=== PATIENT | female | born 1980 | race Caucasian/White ===

== ENCOUNTER 2018-04-23 13:39 | Inpatient (IN) | payer SELFPAY ==
[~2018-04-23] VITALS: Ht 170.2 cm; Wt 56.7 kg
--- NOTE | 2018-04-23 14:05 | NUR ---
PT CAME FROM HOME S/P SLIP AND FALL- C/O SEVERE R KNEE PAIN. DENIES KO, DENIES ANY PAIN. VSS. SEEN BY FOR EVAL. IV ACCESS STARTED. BLOOD DRAWN FOR LABS. SAFETY AND COMFORT MEASURES PROVIDED. WILL MONITOR.
[2018-04-23] MEDS ORDERED: HYDROMORPHONE 1 MG/1 ML DISP.SYRIN ONE ×2 (14:52→17:34)
[2018-04-23] MEDS ORDERED: ONDANSETRON HCL/PF 4 MG/2 ML VIAL ONE (14:52)
[2018-04-23] MEDS ORDERED: ONDANSETRON HCL/PF 4 MG/2 ML VIAL IVP ONE (15:00)
[2018-04-23] MEDS ORDERED: HYDROMORPHONE INJ 2 MG/ML DISP.SYRIN IV ONE (15:00)
--- NOTE | 2018-04-23 15:19 | NUR ---
TISHA MCKEON MD [employer]BILE E[employer]IPMENT SERVICER FROM [facility]
[2018-04-23 15:58] LABS: BASOPHILS % (AUTO) 0.2 % (0.0-2.0); EOSINOPHILS % (AUTO) 0.2 % (0.0-6.0); HEMATOCRIT 38 % (33-45); HEMOGLOBIN 12.9 g/dL (11.5-14.8); LYMPHOCYTES # (AUTO) 0.9 /CMM (0.8-4.8); LYMPHOCYTES % (AUTO) 11.9 % (20.0-44.0); MEAN CORPUSCULAR HEMOGLOBIN 33 PG (26.0-33.0); MEAN CORPUSCULAR HGB CONC 35 g/dl (31.0-36.0); MEAN CORPUSCULAR VOLUME 95 fL (82-100); MONOCYTES # (AUTO) 0.4 /CMM (0.1-1.30); MONOCYTES % (AUTO) 4.8 % (2.0-12.0); NEUTROPHILS # (AUTO) 6.1 /CMM (1.8-8.9); NEUTROPHILS % (AUTO) 82.9 % (43.0-81.0); PLATELET COUNT (AUTO) 244 /CMM (150-450); RDW COEFFICIENT OF VARIATION 11.7 (11.5-15.0); RED BLOOD CELL COUNT(AUTO) 3.94 MIL/uL (4.0-5.2); WHITE BLOOD COUNT (AUTO) 7.4 K/uL (4.3-11.0)
[2018-04-23 16:06] LABS: CALCIUM, SERUM 9.3 mg/dL (8.5-10.1); CREATININE 0.9 mg/dL (0.6-1.3); POTASSIUM 3.5 mmol/L (3.5-5.1)
[2018-04-23 16:10] LABS: INR 1.02 (0.85-1.15)
[2018-04-23 16:12] LABS: ALBUMIN 4.2 g/dL (3.4-5.0); BILIRUBIN,DIRECT 0.1 mg/dL (0.0-0.2); BILIRUBIN,TOTAL 0.7 mg/dL (0.2-1.0); TOTAL PROTEIN, SERUM 7.4 g/dL (6.4-8.2)
--- NOTE | 2018-04-23 16:13 | NUR ---
[facility] NOW[facility] FOR CONSULT
--- NOTE | 2018-04-23 17:15 | NUR ---
CALLED [facility] AFTER HOURS AND DR MCGOVERN WAS PAGED
--- NOTE | 2018-04-23 17:52 | NUR ---
CALLED NURSING [facility] AND REQUESTED A MED SURG BED FOR THIS PT.
--- NOTE | 2018-04-23 17:58 | NUR ---
PT IS ASSIGNED TO MED SURG RM#: 200, DX: RIGHT PATELLA FRACTURE, ACCEPTING: HOLLIS WOODY NP
[2018-04-23] MEDS ORDERED: HYDROMORPHONE INJ 0.5 MG/0.5 ML SYRINGE IV ONE (18:00)
--- NOTE | 2018-04-23 18:03 | NUR ---
REPORT GIVEN TO MICHELLE ALMAGUER IN MS 2. PT TO TRANSFER TO MED SURG ROOM 200.
--- NOTE | 2018-04-23 18:15 | NUR ---
PT TRANSFERRED TO MS ROOM 200.
--- NOTE | 2018-04-23 18:43 | NUR ---
PT TRANS TO ROOM 204-1.
--- NOTE | 2018-04-23 18:45 | NUR ---
MS2RN. PT RECEIVED A&0X4 TOLERATING ROOM AIR AND REPORTING MODERATE PAIN AT R5EST TO RIGHT KNEE, SEVERE PAIN WITH SLIGHTEST MOVEMENT. PT VITALS WNL, PT ASSISTED INTO GOWN. PT R KNEE PROPPED, PT NOT IN IMMOBILIZER REPORTEDLY R/T PAIN PUPPET ENGINEER AWARE. PUPPET ENGINEER CN AWARE PT IS HERE. WAITING FOR ORDERS.
[2018-04-23] MEDS ORDERED: MAG HYDROX/AL HYDROX/SIMETH 30 ML UDC PO PRN (19:00)
[2018-04-23] MEDS ORDERED: ACETAMINOPHEN 325 MG TABLET PO PRN (19:00)
[2018-04-23] MEDS ORDERED: Z GUARD REMEDY 2 OZ OINT TP PRN (19:00)
[2018-04-23] MEDS ORDERED: MAGNESIUM HYDROXIDE 30 ML UDC PO PRN (19:00)
--- NOTE | 2018-04-23 19:54 | NUR ---
MS2/RN RECEIVE PATIENT IN BED AWAKE, ALERT, ORIENTED. COMFORTABLE, NO C/O PAIN AT THIS TIME, NO DISTRESS NOTED, ADMISSION DONE PER PROTOCOL, PATIENT DID NOT WANT TO CHANGE POSITION DUE TO PAIN UPON MOVEMENT HENCE UNABLE TO CHECK SKIN AT THIS TIME, PLAN OF CARE DISCUSSED AND VERBALIZED UNDERSTANDING AND AGREEMENT, PLACED CALL LIGHT IN REACH. WILL MONITOR.
[2018-04-23 20:00] VITALS: BP 124/69
[2018-04-23] MEDS: IV NS 0.9% 1,000 ML IV PRN (20:12)
[2018-04-23] MEDS: HYDROMORPHONE INJ 2 MG/ML DISP.SYRIN IV PRN (22:03)
--- NOTE | 2018-04-24 00:19 | NUR ---
MS/RN PATIENT IS SLEEPING AT THIS TIME, EASILY AROUSABLE, APPEAR COMFORTABLE, NO SIGNS OF DISTRESS NOTED, CALL LIGHT IN REACH. WILL CONTINUE TO MONITOR.
[2018-04-24] MEDS ORDERED: CEFAZOLIN SODIUM 1 GM in IV SODIUM CHLORIDE 0.9% 50 ML IV SCH (02:00)
[2018-04-24] MEDS: ONDANSETRON HCL/PF 4 MG/2 ML VIAL IVP PRN ×3 (06:47→21:04)
[2018-04-24] MEDS: HYDROMORPHONE INJ 2 MG/ML DISP.SYRIN IV PRN ×3 (06:48→18:51)
--- NOTE | 2018-04-24 06:54 | NUR ---
MS/RN PATIENT IS AWAKE AT THIS TIME, C/O RT. KNEE PAIN 8/10 SPECIALLY WITH MOVEMENT, DILAUDID 1 MG IVP WAS GIVEN ORDERED. ZOFRAN 4 MG IVP WAS ALSO GIVEN PER PATIENT'S REQUEST FOR NAUSEA DUE TO DILAUDID. ALL NEEDS ATTENDED AT THIS TIME, WILL CONTINUE TO MONITOR.
[2018-04-24 07:46] LABS: BASOPHILS % (AUTO) 0.5 % (0.0-2.0); EOSINOPHILS % (AUTO) 0.2 % (0.0-6.0); HEMATOCRIT 34 % (33-45); HEMOGLOBIN 11.8 g/dL (11.5-14.8); LYMPHOCYTES # (AUTO) 1.4 /CMM (0.8-4.8); LYMPHOCYTES % (AUTO) 19.8 % (20.0-44.0); MEAN CORPUSCULAR HEMOGLOBIN 34 PG (26.0-33.0); MEAN CORPUSCULAR HGB CONC 35 g/dl (31.0-36.0); MEAN CORPUSCULAR VOLUME 99 fL (82-100); MONOCYTES # (AUTO) 0.5 /CMM (0.1-1.30); MONOCYTES % (AUTO) 7.2 % (2.0-12.0); NEUTROPHILS % (AUTO) 72.3 % (43.0-81.0); PLATELET COUNT (AUTO) 189 /CMM (150-450); RDW COEFFICIENT OF VARIATION 12.4 (11.5-15.0); RED BLOOD CELL COUNT(AUTO) 3.47 MIL/uL (4.0-5.2); WHITE BLOOD COUNT (AUTO) 6.9 K/uL (4.3-11.0)
[2018-04-24 07:47] LABS: CREATININE 0.7 mg/dL (0.6-1.3); MAGNESIUM 1.8 mg/dL (1.8-2.4); PHOSPHORUS 3.7 mg/dL (2.5-4.9); POTASSIUM 3.9 mmol/L (3.5-5.1)
[2018-04-24 07:53] LABS: THYROID STIMULATING HORMONE 1.736 uIU/mL (0.358-3.74)
[2018-04-24 08:00] VITALS: BP 118/63
--- NOTE | 2018-04-24 08:00 | NUR ---
MS2/RN RECEIVE PATIENT IN BED AWAKE, ALERT, ORIENTED. COMFORTABLE,WITH C/O PAIN TO RLE BUT REFUSED PAIN MED SAYING IT MAKES HER NAUSEOUS AND ALSO REFUSED ZOFRAN WELL, NO DISTRESS NOTED, PATIENT DID NOT WANT TO CHANGE POSITION DUE TO PAIN UPON MOVEMENT HENCE UNABLE TO CHECK SKIN AT THIS TIME, PLAN OF CARE DISCUSSED AND VERBALIZED UNDERSTANDING AND AGREEMENT, PLACED CALL LIGHT IN REACH. WILL MONITOR.
[2018-04-24] MEDS: IV NS 0.9% 1,000 ML IV PRN (09:53)
--- NOTE | 2018-04-24 10:14 | NUR ---
SEEN BY YOGESH IVEY AND SPOKE TO THE FAMILY WELL.PT INSISTS TO REFUSE IMMOBILIZER TO RLE.
[2018-04-24] MEDS ORDERED: MORPHINE SULFATE INJ 2 MG/ML DISP.SYRIN IV PRN (14:00)
[2018-04-24 16:00] VITALS: BP 124/64
--- NOTE | 2018-04-24 16:00 | NUR ---
BROUGHT TO O.R. RT PATELLA FX ORIF WITH STABLE V/S.DILAUDID 1 MG IV GIVEN PRIOR TO GOING TO O.R.
[2018-04-24] MEDS ORDERED: METOCLOPRAMIDE HCL 10 MG/2 ML VIAL ONE (16:26)
[2018-04-24] MEDS ORDERED: FENTANYL PF 100MCG/2ML AMPUL ONE ×2 (16:26→17:59)
[2018-04-24] MEDS ORDERED: KETOROLAC TROMETHAMINE INJ 30 MG/ML VIAL ONE (16:32)
[2018-04-24] MEDS ORDERED: BACITRACIN 50000 UNITS/VIAL ONE (16:54)
[2018-04-24] MEDS ORDERED: MORPHINE SULFATE/PF 10 MG/10ML (1MG/ML) AMPUL ONE (17:25)
[2018-04-24] MEDS ORDERED: BUPIVACAINE MPF 0.75% 30 ML VIAL IJ ONE (17:30)
[2018-04-24 18:30] VITALS: BP 122/62
--- NOTE | 2018-04-24 18:30 | NUR ---
PT ARRIVED FROM O.R. S/P ORIF OF RT PATELLA FX BY DR MCGOVERN.WITH IMMOBILIZER,ICE PACK IN PLACE AND ELEVATED WITH PILLOW.WILL GIVE PAIN MEDS PRN.FAMILY AT BEDSIDE.HOOKED PT'S IVF OF NS AT 75 ML/HR TO LEFT HAND INFUSING WELL.STARTED PT ON ICE CHIPS WITH HOB ELEVATED AND WILL ADVANCE DIET TOLERATED.CALL LIGHT PLACED WITHIN REACH.
[2018-04-24 20:41] VITALS: BP 115/68
[2018-04-25] MEDS: IV NS 0.9% 1,000 ML IV PRN (01:16)
[2018-04-25] MEDS: CEFAZOLIN SODIUM 1 GM in IV SODIUM CHLORIDE 0.9% 50 ML IV SCH ×3 (01:47→16:59)
[2018-04-25] MEDS: HYDROCODONE/APAP 5/325MG 1 EACH TABLET PO PRN ×4 (04:10→18:12)
--- NOTE | 2018-04-25 04:56 | NUR ---
MS2/RN MORNING CARE DONE, SPONGE BATH DONE, TOTAL LINEN CARE DONE, REPOSITIONED TO COMFORT. WILL CONTINUE TO MONITOR.
[2018-04-25 07:28] LABS: BASOPHILS % (AUTO) 0.3 % (0.0-2.0); HEMATOCRIT 32 % (33-45); HEMOGLOBIN 11.2 g/dL (11.5-14.8); LYMPHOCYTES # (AUTO) 1.3 /CMM (0.8-4.8); LYMPHOCYTES % (AUTO) 17.3 % (20.0-44.0); MEAN CORPUSCULAR HEMOGLOBIN 35 PG (26.0-33.0); MEAN CORPUSCULAR HGB CONC 35 g/dl (31.0-36.0); MEAN CORPUSCULAR VOLUME 99 fL (82-100); MONOCYTES # (AUTO) 0.8 /CMM (0.1-1.30); MONOCYTES % (AUTO) 10.7 % (2.0-12.0); NEUTROPHILS # (AUTO) 5.2 /CMM (1.8-8.9); NEUTROPHILS % (AUTO) 71.7 % (43.0-81.0); PLATELET COUNT (AUTO) 162 /CMM (150-450); RDW COEFFICIENT OF VARIATION 12.3 (11.5-15.0); RED BLOOD CELL COUNT(AUTO) 3.21 MIL/uL (4.0-5.2); WHITE BLOOD COUNT (AUTO) 7.3 K/uL (4.3-11.0)
[2018-04-25 07:48] LABS: CALCIUM, SERUM 8.2 mg/dL (8.5-10.1); CREATININE 0.7 mg/dL (0.6-1.3); POTASSIUM 4.3 mmol/L (3.5-5.1)
--- NOTE | 2018-04-25 08:00 | NUR ---
MS 2 RN AM NOTE RECEIVED PATIENT IN BED AWAKE, ALERT, ORIENTED. COMFORTABLE,WITH C/O PAIN TO S/P RT KNEE ORIF WOUND -WILL GIVEN [place] PRN PAIN MED NEEDED.NO DISTRESS NOTED, WITH RT KNEE IMMOBILIZER IN PLACE WITH ONGOING IVF OF NS AT 75 ML/HR INFUSING WELL TO LT HAND.PATIENT TEACHING DONE REGARDING THE IMPORTANCE OF TURNING Q 2HRS WHILE IN BED/SKIN CARE MANAGEMENT.PLAN OF CARE DISCUSSED AND VERBALIZED UNDERSTANDING OF INSTRUCTIONS GIVEN.PLACED CALL LIGHT WITHIN REACH. WILL MONITOR.
--- NOTE | 2018-04-25 11:00 | NUR ---
Seen by P.T and pt refused to transfer and gait train at this time secondary to pain with min assist.[place] given post P.T. tx .Pt still insists to refused to be seen by P.T saying she is in so much pain.Pt teaching given on the importance of PT tx.Pt verbalized understanding of instructions given.
[2018-04-25] MEDS ORDERED: ONDA4TAB8 SL (13:38)
[2018-04-25] MEDS ORDERED: ASPI-992 PO (13:38)
[2018-04-25] MEDS ORDERED: HYDR-552 PO (13:38)
[2018-04-25 15:51] VITALS: BP 106/61
--- NOTE | 2018-04-25 17:18 | NUR ---
SEEN BY LINDA IVEY PA AND PT TEACHING GIVEN.
--- NOTE | 2018-04-25 17:42 | NUR ---
DISCHARGE INSTRUCTIONS AND PRESCRIPTION GIVEN.ALL BELONGINGS HAS BEEN CHECKED.WITH ONGOING IV ATB ANCEF INFUSING WELL TO LT HAND.AWAITING FOR ATB TO BE COMPLETED.PT'S BOYFRIEND,YANCI IS ON HIS WAY TO CUSTOMER SUPPORT ASSOCIATE THE PT.
--- NOTE | 2018-04-25 18:37 | NUR ---
COMPLETED IV ATB AND REMOVED HEPLOCK TO LEFT HAND -TOLERATED WELL WITHOUT BLEEDING OR SWELLING ON THE SITE.AWAITING FOR HER BOYFRIEND IN PICKING UP HER PRESCRIPTIONS.
--- NOTE | 2018-04-25 19:00 | NUR ---
DISCHARGED HOME WITH [facility] FOLLOW UP FOR P.T. WITH STABLE V/S.DENIES ANY PAIN OR DISTRESS.ACCOMPANIED BY HER BOYFRIEND,YANCI.ACCOMPANIED TO HER CAR VIA WHEELCHAIR.FWW GIVEN TO THE PT.
== END 2018-04-25 19:00 | disposition home or self-care (01) | DRG 517 ==
LOC: ER 13:40 → MEDSG2 18:35
PROVIDERS: ADMIT Nurse Practitioner Acute Care; ATTEND Nurse Practitioner Acute Care
PROC: 0QSD04Z Reposition Right Patella with Internal Fixation Device, Open Approach (ICD-10-PCS; principal; 2018-04-24 16:50)
DX: S82.041A Displaced comminuted fracture of right patella, initial encounter for closed fracture (principal); Y93.01 Activity, walking, marching and hiking; W10.2XXA Fall (on)(from) incline, initial encounter; Y92.9 Unspecified place or not applicable
CPT/HCPCS: 36415; 71045-TC; 73560-TC; 80048-TC; 80061-TC; 80076-TC; 83735-TC; 84100-TC; 84443-TC; 84703-TC; 85025-TC; 85730-TC; 86850-TC; 87081-TC; A4216; A4606; J0690; J1170; J1885; J2270; J2274; J2405; J2765; J3010; J3490; J7030; Z7610